=== PATIENT | male | born 1950 | race Caucasian/White ===

== ENCOUNTER 2017-12-24 17:25 | Emergency (ER) | payer MEDICARE, OTHER, SELFPAY | END 2017-12-24 18:54 | disposition home or self-care (01) | PROVIDERS: Emergency Provider Emergency Medicine; Family Provider Internal Medicine; PCP Internal Medicine; Visit Provider Emergency Medicine | DX: I47.1 Supraventricular tachycardia (principal) | CPT/HCPCS: 71010; 71045; 80053; 84484; 85025; 85610; 85730; 93005; 93010; 96361; 96374; 99058; 99284; J0153 ==

== ENCOUNTER → 2018-05-18 15:54 | Outpatient (CLI) | payer MEDICARE, OTHER, SELFPAY ==
--- NOTE | 2018-05-18 | DI.RAD.S_ITS ---
PROCEDURE: XR FOOT RT MIN 3V INDICATIONS: PAIN IN RIGHT FOOT AND ANKLE TECHNIQUE: 3 views of the foot were acquired. COMPARISON: None. FINDINGS: Bones: No fractures or dislocations. No suspicious bony lesions. Moderate first MTP joint osteoarthritis is seen with joint space narrowing and marginal osteophyte formation. Soft tissues: No tibiotalar joint effusion. Achilles tendon appears normal. IMPRESSION: Moderate first MTP joint osteoarthritis. Dictated by: Adolfo Lacey M.D. on 05/18/2018 at 16:35 Approved by: Adolfo Lacey M.D. on 05/18/2018 at 16:35
== END ==
PROVIDERS: Family Provider Internal Medicine; PCP Internal Medicine; Visit Provider Student in an Organized Health Care Education/Training Program
DX: M25.571 Pain in right ankle and joints of right foot (principal); M19.071 Primary osteoarthritis, right ankle and foot
CPT/HCPCS: 73630

== ENCOUNTER → 2018-05-19 13:08 | Outpatient (CLI) | payer MEDICARE, OTHER, SELFPAY ==
--- NOTE | 2018-05-19 | DI.US.S_ITS ---
PROCEDURE: US ABDOMEN LIMITED INDICATIONS: RIGHT LOWER QUADRANT PAIN TECHNIQUE: Real-time focused scanning was performed of the inguinal region, with image documentation. COMPARISON: None. FINDINGS: No right inguinal hernia or other abnormal masses or fluid collections seen. IMPRESSION: No inguinal hernia or other abnormal masses within the right lower quadrant. Dictated by: Desean ADRIAN Interpreted: Gage Gay MD on 05/19/2018 at 16:34 Approved by: Gage Gay M.D. on 05/19/2018 at 17:33
== END ==
PROVIDERS: Family Provider Internal Medicine; PCP Internal Medicine; Visit Provider Student in an Organized Health Care Education/Training Program
DX: R10.31 Right lower quadrant pain (principal)
CPT/HCPCS: 76700; 76705

== ENCOUNTER 2018-06-30 08:03 | Day surgery (SDC) | payer MEDICARE, OTHER, SELFPAY ==
[2018-06-30] MEDS: PROPARACAINE 0.5% OPHTH SOL 2 DROPS EYE-OP (08:47)
[2018-06-30] MEDS: CATARACT EYE COMPOUND (10 DROPS/SYRINGE) 3 DROPS EYE-OP (08:49)
[2018-06-30 08:54] VITALS: BP 156/81; PULSE 51; RESP 18; TEMP 36.4; O2SAT 97; BMI 29.8
--- NOTE | 2018-06-30 09:38 | P.OP.PRE_ITS ---
Pre-operative Note Interval Note Changes: No
--- NOTE | 2018-06-30 09:38 | PM.PREOP ---
Pre-operative Note Interval Note Changes: No
--- NOTE | 2018-06-30 09:39 | P.OP_ITS ---
Operative Date/Time/Diagnoses Pre-op diagnosis: Nuclear cataract right eye Procedure & Clinicians Procedure: Cataract Surgery Same procedure as scheduled: Yes Surgeon: Hermes Burnette Anesthesia Type: MAC +/- and Sedation Operative Notes Procedure in detail: Patient brought to the operating suite. Tetracaine drops placed in the right eye. Patient was prepped and draped in sterile manner. Wire lid speculum was placed in the eye. Betadine drops were placed on the eye. This was irrigated. Lidocaine jelly was placed on the eye. A paracentesis port was created with a side-port blade. 0.1 mL 1% preservative free lidocaine was injected into the anterior chamber. The anterior chamber was deepened with viscoelastic. 2.6 mm keratome was used to create a temporal clear corneal incision. Cystotome and Utrata forceps were used to create continuous tear capsulorrhexis. Balanced salt solution was used to hydro dissect the nucleus. The phacoemulsification handpiece was inserted and the nucleus was removed using the stop and chop technique. The irrigation aspiration handpiece was inserted and the remaining cortex was removed. Anterior chamber was deepened with viscoelastic. An Willard ZCB00 intraocular lens with a power of 18.0 was injected into the capsular bag. Irrigation aspiration handpiece was inserted and the remaining viscoelastic was removed. Incision was hydrated with balanced salt solution and found to be leak free with pressure with Weck- Marianne sponges. 0.1 mL Vigamox injected anterior chamber. 0.3 mL Kenalog 10 mg was injected subconjunctivally. Lid speculum was removed. The patient left the operating room in excellent condition. Complications: none Condition: stable Disposition: same day surgery
[2018-06-30] MEDS: PHENYLEPHRINE/LIDOCAINE VIAL (OR) 0.2 ML EYE-OP (09:54)
[2018-06-30] MEDS: MOXIFLOXACIN OPHTH DROPS 3 ML BOTTLE 2 DROPS INJ (09:54)
[2018-06-30] MEDS: CHONDROIDTIN/SOD HYALURONATE 1.05 ML SYRINGE INTRAOCULA (09:55)
[2018-06-30] MEDS: TRIAMCINOLONE 50 MG/5 ML VIAL INJ (09:55)
[2018-06-30] MEDS: LIDOCAINE JELLY 2% 5 ML 1 APPLIC TOP (09:55)
[2018-06-30] MEDS: BALANCED SALT IRRIG SOLN NO.2 500 ML, EPINEPHrine 1 MG IRR (09:56)
[2018-06-30] MEDS: TETRACAINE 0.5% OPHTH DROPS 15 ML 2 DROPS EYE-RIGHT (09:56)
[2018-06-30 10:10] VITALS: BP 106/66; PULSE 52; RESP 16; TEMP 36.4; O2SAT 94
== END 2018-06-30 10:19 ==
LOC: OR 08:04
PROVIDERS: Family Provider Internal Medicine; PCP Internal Medicine; Visit Provider Ophthalmology
DX: H25.11 Age-related nuclear cataract, right eye (principal); I10 Essential (primary) hypertension
CPT/HCPCS: J0171; J2250; J3010; J3301

== ENCOUNTER → 2018-09-25 11:36 | Outpatient (CLI) | payer MEDICARE, OTHER, SELFPAY ==
[2018-09-25 13:36] LABS: Estimated Glomerular Filt Rate > 60.0 mL/min (>60)
== END ==
PROVIDERS: Family Provider Internal Medicine; PCP Internal Medicine; Visit Provider Internal Medicine
DX: R06.09 Other forms of dyspnea (principal)
CPT/HCPCS: 36415; 82565

== ENCOUNTER → 2019-06-17 14:44 | Outpatient (ROUT) | payer MEDICARE, OTHER, SELFPAY ==
[2019-06-17 20:00] LABS: Aspartate Aminotransferase 32 IU/L (17-59); BUN Creatinine Ratio 23.3 (6-22); Blood Urea Nitrogen 21 mg/dL (9-20); Calcium 9.8 mg/dL (8.4-10.2); Carbon Dioxide 25 mmol/L (22-32); Chloride 107 mmol/L (98-107); Estimated Glomerular Filt Rate > 60.0 mL/min (>60); Glucose 92 mg/dL (80-110); Potassium 4.4 mmol/L (3.4-5.1); Sodium 142 mmol/L (137-145)
[2019-06-17 20:01] LABS: Cholesterol 149 mg/dL (140-199); HDL Cholesterol 54 mg/dL (40-60); HEMOLYSIS < 15 (0-50); LDL Cholesterol Calculated 68 mg/dL (<100); Prostate Specific Antigen 0.592 ng/mL (0.10-4.00); Triglycerides 134 mg/dL (35-150)
== END ==
PROVIDERS: Family Provider Internal Medicine; PCP Internal Medicine; Visit Provider Internal Medicine
DX: E78.5 Hyperlipidemia, unspecified (principal); I10 Essential (primary) hypertension; Z12.5 Encounter for screening for malignant neoplasm of prostate
CPT/HCPCS: 80048; 80061; 84153; 84450

== ENCOUNTER 2019-10-06 12:25 | Day surgery (SDC) | payer MEDICARE, OTHER, SELFPAY ==
--- NOTE | 2019-10-06 | PATH_ITS ---
[facility] Accession Number: [id number] . 01 Material submitted: . PART A: gastrointestinal site - GASTRIC BIOPSY, BODY OF ANTRUM PART B: esophagus - ESOPHAGEAL BIOPSY 30CM PART C: esophagus - ESOPHAGEAL BIOPSY 32CM PART D: esophagus - ESOPHAGEAL BIOPSY 34CM PART E: esophagus - ESOPHAGEAL BIOPSY 36CM PART F: esophagus - ESOPHAGEAL BIOPSY 38CM PART G: rectum - RECTAL POLYP . 01 Clinical history: . A: FOR H.PYLORI B-F: COBIAN'S . 02 Diagnosis: A. Stomach, Biopsy: Gastric body mucosa with minimal chronic inflammation. No evidence of Helicobacter organisms on H/E stain. Negative for intestinal metaplasia. Negative for dysplasia or malignancy. . B. - E. Esophagus, 30-36 CM, Biopsies: Proximal gastric-type mucosa with specialized intestinal metaplasia, consistent with Cobian's esophagus. Negative for dysplasia or malignancy. . F. Esophagus, 38 CM, Biopsy: Proximal gastric mucosa with mild chronic inflammation. Negative for specialized intestinal metaplasia, dysplasia or malignancy. . G. Rectum, Polyp: Colonic mucosa with focal mucosal hyperplasia and benign lymphoid aggregate. Negative for dysplasia or malignancy. [facility] 10/07/2019 1316 Local . 02 Electronically signed: . Aly Monroe MD, PhD, Pathologist NPI- [id number] . 01 Gross description: . Part A: GASTRIC BIOPSY, BODY OF ANTRUM: Received in formalin are 2 fragment(s) of taylor, soft tissue measuring 0.2 x 0.1 x 0.1 cm to 0.3 x 0.2 x 0.2 cm submitted entirely in 1 cassette(s) Part B: ESOPHAGEAL BIOPSY 30CM: Received in formalin are 3 fragment(s) of taylor, soft tissue measuring 0.1 x 0.1 x 0.1 cm to 0.2 x 0.2 x 0.1 cm submitted entirely in 1 cassette(s) Part C: ESOPHAGEAL BIOPSY 32CM: Received in formalin are 2 fragment(s) of taylor, soft tissue measuring 0.1 x 0.1 x 0.1 cm in aggregate submitted entirely in 1 cassette(s) Part D: ESOPHAGEAL BIOPSY 34CM: Received in formalin are 3 fragment(s) of taylor, soft tissue measuring 0.1 x 0.1 x 0.1 cm in aggregate submitted entirely in 1 cassette(s) Part E: ESOPHAGEAL BIOPSY 36CM: Received in formalin are 2 fragment(s) of taylor, soft tissue measuring 0.1 x 0.1 x 0.1 cm in aggregate submitted entirely in 1 cassette(s) Part F: ESOPHAGEAL BIOPSY 38CM: Received in formalin are 2 fragment(s) of taylor, soft tissue measuring 0.1 x 0.1 x 0.1 cm to 0.3 x 0.1 x 0.1 cm submitted entirely in 1 cassette(s) Part G: RECTAL POLYP: Received in formalin is 1 fragment(s) of taylor, soft tissue measuring 0.5 x 0.3 x 0.2 cm submitted entirely in 1 cassette(s) [place] [place]/06/2019 2239 Local . 02 Pathologist provided ICD-10: K22.70, K62.1 . 02 CPT . 966249, 339581, 814310, 940305, 971234, 181188, 599983 Performed at: 01 [facility] [address] [place] [address], [place], [place] [id number] MD Delmar Bennett MD Phone: [phone] Performed at: 02 [facility] [address] [place], [place] [id number] MD Clarissa Evans MD Phone: [phone]
--- NOTE | 2019-10-06 11:35 | PM.HP.1 ---
History of Present Illness History of Present Illness Date Patient Seen: 10/06/19 Chief complaint: [id number] Narrative: 69-year-old male with history of Fuentes's esophagus and reflux who is here for surveillance. The patient is also here for colon cancer screening given a family history of colon cancer in his mother. He denies any prior polyps on his last colonoscopy which was around 5 years ago Patient History Medical History (Updated 06/30/18 @ 08:38 by Joanie Hand RN) GERD (gastroesophageal reflux disease) (Acute) History of supraventricular tachycardia (Acute) Hyperlipidemia (Acute) Hypertension (Acute) Myocardial infarction (Acute) Surgical History (Updated 06/30/18 @ 08:38 by Joanie Hand RN) H/O cardiac radiofrequency ablation (Acute) H/O heart artery stent (Acute) History of abdominal surgery (Acute) History of left cataract surgery (Acute) Family & Social History Social History: household members spouse Meds Home Medications and Allergies Home Medications Medication Instructions Recorded Confirmed Type atorvastatin [Lipitor] 80 mg PO QPM #0 12/15/17 10/06/19 History famotidine 20 mg PO QDAY #0 12/15/17 10/06/19 History metoprolol succinate [Toprol XL] 25 mg PO BID #0 12/15/17 10/06/19 History aspirin 81 mg PO QPM #0 12/24/17 10/06/19 History hyoscyamine sulfate [Levsin/SL] 0.125 mg SUBLINGUAL QIDP PRN #0 12/27/17 10/06/19 History nitroglycerin 0.4 mg SUBLINGUAL Q5-15M PRN 06/30/18 10/06/19 History Allergies Allergy/AdvReac Type Severity Reaction Status Date / Time No Known Drug Allergies Allergy Verified 10/06/19 12:36 Exam Narrative Exam Narrative: General: Patient is overweight, not in apparent distress Cardiovascular: Regular rate and rhythm, no murmurs, rubs, or gallops; no evidence of edema; no palpable abdominal aortic aneurysm Gastrointestinal: Normoactive bowel sounds, soft, nontender, nondistended, no rebound tenderness, no hepatosplenomegaly, no evidence of hernia Assessment & Plan Assessment & Plan narrative: 69-year-old male here for Fuentes's esophagus surveillance and colon cancer screening Regarding the procedure(s), the risks and potential complications, benefits, and alternatives (including not doing the procedure) were discussed with the patient. The risks include but are not limited to bleeding, splenic injury, infection, perforation which may require surgical intervention, missed lesions, and adverse reactions to sedative medicines. After a question and answer period, the patient agreed to proceed with the procedure(s) and gives informed consent.
[2019-10-06 12:53] VITALS: BP 128/77; PULSE 67; RESP 16; TEMP 36.3; O2SAT 93; BMI 28.5
[2019-10-06] MEDS: SODIUM CHLORIDE 0.9% 1,000 ML 70 ML IV (13:03)
--- NOTE | 2019-10-06 13:38 | PM.OP.ENDO ---
Operative Date/Time/Diagnoses Date of procedure: 10/06/19 Procedure Notes Procedure in detail: Surgeon: Todd Kim MD Procedure: Esophagogastroduodenoscopy with biopsy and colonoscopy with cold forceps polypectomy Preoperative diagnosis: GERD, Ufentes's esophagus; colon cancer screening, family history of colon cancer in patient's mother Postoperative diagnosis: LA grade D reflux esophagitis, long segment Fuentes's esophagus from 30 cm to 38 cm from the incisors ([id number]) status post biopsy; paraesophageal hernia with loose fundoplication; duodenitis; sigmoid diverticulosis, rectal polyp, grade 1 internal hemorrhoids Medications: Conscious sedation using 7 mg IV of Midazolam and 100 mcg IV of Fentanyl 40 EGD; 10 mg IV of Midazolam and 200 mcg IV of Fentanyl (total for both procedures) Preanesthesia Assessment An H and P was performed/updated and the Px?s ASA class is 2. The procedure was discussed in detail with the patient. The potential risks and complications including infection, bleeding, missed lesions, perforation, need for surgery in case of perforation, prolonged hospital stay, and were explained. A brief question and answer period was allotted and once all questions were answered, informed consent was obtained. The patient was brought back to the procedure room and placed on standard monitoring. The patient?s vital signs were monitored continuously throughout the entire procedure. Prior to starting, a timeout was performed to confirm the patient?s identity, allergies, medications, and procedure. Procedure in detail The patient was placed in left lateral decubitus position and a bite block was inserted. The tip of the upper endoscope was placed into the mouth and advanced without difficulty under direct visualization into the esophagus. Esophagus: There was note of LA grade D reflux esophagitis at 28 to 30 cm from the incisors. Long segment Fuentes's esophagus with no evidence of nodularity found from 30 cm to 38 cm from the incisors; Fuentes's biopsies taken every 2 cm for a total of 5 bottles with minimal bleeding Stomach: Evidence of prior fundoplication although this is now loose with subsequent development of paraesophageal hernia; gastric biopsies taken for H pylori due to evidence of duodenal erythema Duodenum: Duodenal erythema with shallow ulcerations in the bulb and 2nd portion of the duodenum consistent with duodenitis After the upper endoscopy, preparations were made for the colonoscopy. Once adequate sedation was obtained a ALETHA was performed. The digital rectal examination did not reveal any palpable lesions. The tip of the colonoscope was placed in the anal canal and advanced without difficulty all the way to the cecum which was identified by the appendiceal orifice and the ileocecal valve. There was note of few diverticula in the right colon. There was evidence of multiple medium-sized diverticula in the sigmoid colon In the rectum, a 2 mm sessile polyp was found and removed by means of cold Jumbo forceps. Resection and retrieval was complete with minimal bleeding Retroflexion was performed in the rectum which revealed grade 1 internal hemorrhoids The patient tolerated the procedure well and will be brought back to the recovery area to be discharged once criteria are met. The prep was judged to be good and adequate to identify polyps less than 5 mm. The withdrawal time was 7 minutes. The total physician intraservice time was 41 minutes. Complications There were no complications and estimated blood loss was minimal. Recommendations Resume previous diet Anti-reflux measures at all times Start omeprazole 20 mg 30 minutes prior to breakfast and 30 minutes prior to dinner (script sent to [employer]) Start Carafate 1 g slurry 4 times daily for the next 3 months (script sent to [employer]) Continue outpatient medications Follow-up pathology results Repeat upper endoscopy to check healing of esophagitis in 12 weeks Repeat colonoscopy in 5 years An emergency contact number was given to the patient for any complications related to the procedure
[2019-10-06] MEDS: fentaNYL 250 MCG/5 ML INJ IV (13:39)
[2019-10-06] MEDS: MIDAZOLAM 5 MG/5 ML VIAL IV (13:39)
[2019-10-06 14:26] VITALS: BP 115/78; PULSE 71; RESP 13; TEMP 36.1; O2SAT 94
[2019-10-06 14:31] VITALS: BP 125/80; PULSE 69; RESP 10; O2SAT 92
[2019-10-06 14:35] VITALS: BP 128/87; PULSE 72; RESP 18; TEMP 36.7; O2SAT 93
[2019-10-06 14:50] VITALS: BP 118/78; PULSE 69; RESP 14; TEMP 36.4; O2SAT 92
== END 2019-10-06 14:59 | disposition home or self-care (01) ==
LOC: ENDO 12:27
PROVIDERS: PCP Internal Medicine; Visit Provider Internal Medicine Gastroenterology
PROC: 0DJ08ZZ Inspection of Upper Intestinal Tract, Via Natural or Artificial Opening Endoscopic (ICD-10-PCS; CPT 43235; principal; 2019-10-06 14:00)
PROC: 0DJD8ZZ Inspection of Lower Intestinal Tract, Via Natural or Artificial Opening Endoscopic (ICD-10-PCS; CPT 45378; 2019-10-06 14:00)
DX: Z12.11 Encounter for screening for malignant neoplasm of colon (principal); Z80.0 Family history of malignant neoplasm of digestive organs; K44.9 Diaphragmatic hernia without obstruction or gangrene; K21.0 Gastro-esophageal reflux disease with esophagitis; K29.80 Duodenitis without bleeding; K22.70 Barrett's esophagus without dysplasia; K57.30 Diverticulosis of large intestine without perforation or abscess without bleeding; K64.0 First degree hemorrhoids; K62.1 Rectal polyp
CPT/HCPCS: 45380; 43239; J2250; J3010

== ENCOUNTER → 2020-03-10 06:59 | Outpatient (CLI) | payer MEDICARE, OTHER, SELFPAY ==
[2020-03-10 08:10] LABS: Alanine Aminotransferase 25 IU/L (<50); Albumin 4.2 g/dL (3.5-5.0); Albumin Globulin Ratio 1.2 (1.0-2.8); Alkaline Phosphatase 76 U/L (38-126); Aspartate Aminotransferase 32 IU/L (17-59); BUN Creatinine Ratio 19.1 (6-22); Bilirubin Total 0.5 mg/dL (0.2-1.3); Blood Urea Nitrogen 17 mg/dL (9-20); Calcium 9.3 mg/dL (8.4-10.2); Carbon Dioxide 26 mmol/L (22-32); Chloride 106 mmol/L (98-107); Cholesterol 139 mg/dL (140-199); Estimated Glomerular Filt Rate > 60.0 mL/min (>60); Globulin 3.5 g/dL (1.7-4.1); Glucose 111 mg/dL (80-110); HDL Cholesterol 40 mg/dL (40-60); HEMOLYSIS < 15 (0-50); LDL Cholesterol Calculated 75 mg/dL (<100); Potassium 4.1 mmol/L (3.4-5.1); Sodium 141 mmol/L (137-145); Total Protein 7.7 g/dL (6.3-8.2); Triglycerides 121 mg/dL (35-150)
== END ==
PROVIDERS: PCP Internal Medicine; Referring Provider Internal Medicine; Visit Provider Internal Medicine
DX: E78.5 Hyperlipidemia, unspecified (principal); I25.10 Atherosclerotic heart disease of native coronary artery without angina pectoris
CPT/HCPCS: 36415; 80053; 80061

== ENCOUNTER → 2020-04-16 09:28 | Outpatient (CLI) | payer MEDICARE, OTHER, SELFPAY ==
[2020-04-17 21:57] LABS: COVID19 Sendout Not Detected (Not Detect)
== END ==
PROVIDERS: PCP Internal Medicine; Visit Provider Physician Assistant
DX: Z11.59 Encounter for screening for other viral diseases (principal)
CPT/HCPCS: 87635

== ENCOUNTER 2020-04-19 09:58 | Day surgery (SDC) | payer MEDICARE, OTHER, SELFPAY ==
--- NOTE | 2020-04-19 | PATH_ITS ---
[facility] Accession Number: [id number] . 01 Material submitted: . esophagus - ESO BX . 01 Clinical history: . SDC . 02 Diagnosis: Esophageal Biopsy: Portions of proximal gastric mucosa with chronic gastritis. Negative for H. pylori by immunohistochemistry studies. Negative for intestinal metaplasia by alcian blue stain. Negative for dysplasia or malignancy. [facility] 04/24/2020 1712 Local . 02 Comment: An immunohistochemical stain was performed to evaluate for Helicobacter organisms and is negative. The control stain showed appropriate reactivity. . * This test was developed and its performance characteristics determined by [facility]. It has not been cleared or approved by the U.S. Food and Drug Administration. The FDA has determined that such clearance or approval is not necessary. This test is used for clinical purposes. It should not be regarded as investigational or for research. . 02 Electronically signed: . Alana Rios MD, Pathologist NPI- [id number] . 01 Gross description: . ESO BX: Received in formalin are 3 fragment(s) of taylor, soft tissue measuring 0.3 x 0.2 x 0.1 cm to 0.1 x 0.1 x 0.1 cm submitted entirely in 1 cassette(s) /[facility] 04/20/2020 0249 Local . 02 Pathologist provided ICD-10: K22.70 . 02 CPT . 328765, 774249, 138218 Performed at: 01 [facility] [address] [address], [place], [place] [id number] MD Delmar Bennett MD Phone: [phone] Performed at: 02 [facility] [place] [id number] [place] [id number] MD Clarissa Evans MD Phone: [phone]
[2020-04-19 10:20] VITALS: BP 139/80; PULSE 52; RESP 18; TEMP 36.3; O2SAT 96; BMI 29.1
[2020-04-19] MEDS: SODIUM CHLORIDE 0.9% 1,000 ML 70 ML IV (10:28)
--- NOTE | 2020-04-19 11:05 | PM.HP.1 ---
History of Present Illness History of Present Illness Date Patient Seen: 04/19/20 Time Patient Seen: 11:05 Chief complaint: SDC Narrative: Patient is a 69 year old male who presented for erpeat EGD. Patient had EGD 10/06/2019 with LA-A esophagitis. Biopsies at that time consistent with Fuentes's esophagus. Since that time he took PPI for approximately 3 months is no office he denies abdominal pain. Denies Patient History Medical History GERD (gastroesophageal reflux disease) (Acute) History of supraventricular tachycardia (Acute) Hyperlipidemia (Acute) Hypertension (Acute) Myocardial infarction (Acute) Surgical History H/O cardiac radiofrequency ablation (Acute) H/O heart artery stent (Acute) History of abdominal surgery (Acute) History of left cataract surgery (Acute) Family & Social History Social History: household members spouse Tobacco & Substance use: Smoking Status Never smoker alcohol intake current alcohol intake frequency a few times a month Substance Use Type does not use Meds Home Medications and Allergies Home Medications Medication Instructions Recorded Confirmed Type atorvastatin [Lipitor] 80 mg PO QPM #0 12/15/17 10/06/19 History metoprolol succinate [Toprol XL] 25 mg PO BID #0 12/15/17 10/06/19 History aspirin 81 mg PO QPM #0 12/24/17 10/06/19 History hyoscyamine sulfate [Levsin/SL] 0.125 mg SUBLINGUAL QIDP PRN #0 12/27/17 10/06/19 History nitroglycerin 0.4 mg SUBLINGUAL Q5-15M PRN 06/30/18 10/06/19 History omeprazole 10 mg PO DAILY 04/19/20 04/19/20 History Allergies Allergy/AdvReac Type Severity Reaction Status Date / Time No Known Drug Allergies Allergy Verified 04/19/20 10:16 Review of Systems Review of Systems ROS: Yes All systems reviewed with the patient and are negative except as otherwise documented Exam Vital Signs (past 8 hours): - 04/19/20 10:20 Temperature 97.3 F L Pulse Rate 52 L Respiratory Rate 18 Blood Pressure 139/80 Pulse Oximetry 96 Oxygen Delivery Method Room Air Assessment & Plan Assessment & Plan narrative: 1. LA-D esophagitits 2. Barretts esophagus - EGD today, further recommendations to follow
[2020-04-19] MEDS: LIDOCAINE 4% SOLN 50 ML 20 ML TOP (11:10)
[2020-04-19] MEDS: fentaNYL 250 MCG/5 ML INJ IV (11:11)
[2020-04-19] MEDS: MIDAZOLAM 5 MG/5 ML VIAL IV ×2 (11:11→11:13)
--- NOTE | 2020-04-19 11:20 | PM.OP.ENDO ---
Operative Date/Time/Diagnoses Date of procedure: 04/19/20 Time of procedure: 11:11 Procedure Notes Procedure in detail: Surgeon: Jessica Hearn DO Procedure: Esophagogastroduodenoscopy with biopsy Preoperative diagnosis: 1. History LA-esophagitis 2. History of Fuentes's esophagus Postoperative diagnosis: 1. Improved esophagitis, biopsy for Fuentes's 2. Paraesophageal hernia with loose fundoplication Medications: Conscious sedation using 4 mg IV of Midazolam and 100 mcg IV of Fentanyl Preanesthesia Assessment An H and P was performed/updated and the Px?s ASA class is 2. The procedure was discussed in detail with the patient. The potential risks and complications including infection, bleeding, missed lesions, perforation, need for surgery in case of perforation, prolonged hospital stay, and were explained. A brief question and answer period was allotted and once all questions were answered, informed consent was obtained. The patient was brought back to the procedure room and placed on standard monitoring. The patient?s vital signs were monitored continuously throughout the entire procedure. Prior to starting, a timeout was performed to confirm the patient?s identity, allergies, medications, and procedure. Procedure in detail The patient was placed in left lateral decubitus position and a bite block was inserted. The tip of the upper endoscope was placed into the mouth and advanced without difficulty under direct visualization into the esophagus. Esophagus: Improved esophagitis, minimal salmon-colored mucosa consistent with Fuentes's esophagus, biopsied at 38 cm Stomach: Paraesophageal hernia with loose fundoplication Improved gastritis Duodenum: No gross lesions, entire examined duodenum, improved duodenitis The patient tolerated the procedure well and will be brought back to the recovery area to be discharged once criteria are met. The total physician intraservice time was 8min. Complications There were no complications and estimated blood loss was minimal. Recommendations: Resume previous diet Continue outPx medications Follow up pathology results Repeat EGD in 3 years for Fuentes's surveillance Office follow up if persistnent symptoms An emergency contact number was given to the patient for any complications related to the procedure
[2020-04-19 11:25] VITALS: BP 100/65; BP 100/67; PULSE 49; PULSE 52; RESP 16; TEMP 36.8; O2SAT 93; O2SAT 95
[2020-04-19 11:30] VITALS: BP 100/65; PULSE 91; RESP 16; O2SAT 91
[2020-04-19 11:35] VITALS: BP 103/70; PULSE 50; RESP 16; O2SAT 92
[2020-04-19 11:40] VITALS: BP 104/73; PULSE 50; RESP 16; TEMP 36.9; O2SAT 92
[2020-04-19 12:03] VITALS: BP 119/74; PULSE 48; RESP 14; TEMP 36.6; O2SAT 94
== END 2020-04-19 12:08 | disposition home or self-care (01) ==
PROVIDERS: PCP Internal Medicine; Referring Provider Student in an Organized Health Care Education/Training Program; Visit Provider Student in an Organized Health Care Education/Training Program
PROC: 0DJ08ZZ Inspection of Upper Intestinal Tract, Via Natural or Artificial Opening Endoscopic (ICD-10-PCS; CPT 43235; principal; 2020-04-19 11:00)
DX: K29.50 Unspecified chronic gastritis without bleeding (principal); Z87.19 Personal history of other diseases of the digestive system; K20.9 Esophagitis, unspecified; K44.9 Diaphragmatic hernia without obstruction or gangrene
CPT/HCPCS: 43239; J2250; J3010

== ENCOUNTER → 2020-11-23 15:26 | Outpatient (ROUT) | payer MEDICARE, OTHER, SELFPAY ==
[2020-11-23 16:04] LABS: Aspartate Aminotransferase 30 IU/L (17-59); Blood Urea Nitrogen 21 mg/dL (9-20); Calcium 9.6 mg/dL (8.4-10.2); Carbon Dioxide 24 mmol/L (22-32); Chloride 105 mmol/L (98-107); Cholesterol 138 mg/dL (140-199); Estimated Glomerular Filt Rate > 60.0 mL/min (>60); Glucose 98 mg/dL (80-110); HDL Cholesterol 44 mg/dL (40-60); HEMOLYSIS 15 (0-50); LDL Cholesterol Calculated 65 mg/dL (<100); Potassium 4.7 mmol/L (3.4-5.1); Sodium 139 mmol/L (137-145); Triglycerides 147 mg/dL (35-150)
[2020-11-23 18:50] LABS: Hemoglobin A1C% w Est Avg Glu 5.8 % (4.0-6.0)
== END ==
PROVIDERS: PCP Internal Medicine; Visit Provider Internal Medicine
DX: I10 Essential (primary) hypertension (principal); E78.2 Mixed hyperlipidemia
CPT/HCPCS: 80048; 80061; 83036; 84450

== ENCOUNTER → 2022-01-16 09:30 | Outpatient (CLI) | payer MEDICARE, OTHER, SELFPAY ==
[2022-01-16 10:14] LABS: Hematocrit 43.9 % (41-53); Hemoglobin 14.6 g/dL (13.5-17.5); Mean Corpuscular HGB Conc 33.3 % (30-36); Mean Corpuscular Hemoglobin 30.9 PG (26-34); Mean Corpuscular Volume 92.9 fL (80-100); Platelet Count 186 X10^3/uL (150-400); Red Blood Cell Count 4.73 X10^6/uL (4.5-5.9); Red Cell Distribution Width 14.1 % (11.6-14.8); White Blood Cell Count 8.9 X10^3/uL (4.5-11.0)
[2022-01-16 10:54] LABS: Alanine Aminotransferase 27 IU/L (<50); Albumin 4.3 g/dL (3.5-5.0); Albumin Globulin Ratio 1.3 (1.0-2.8); Alkaline Phosphatase 67 U/L (38-126); Aspartate Aminotransferase 32 IU/L (17-59); BUN Creatinine Ratio 22.3 (6-22); Bilirubin Total 0.6 mg/dL (0.2-1.3); Blood Urea Nitrogen 21 mg/dL (9-20); Calcium 9.4 mg/dL (8.4-10.2); Carbon Dioxide 28 mmol/L (22-32); Chloride 108 mmol/L (98-107); Cholesterol 143 mg/dL (140-199); Estimated Glomerular Filt Rate > 60 mL/min (>60); Globulin 3.2 g/dL (1.7-4.1); Glucose 104 mg/dL (80-110); HDL Cholesterol 49 mg/dL (40-60); HEMOLYSIS < 15 (0-50); LDL Cholesterol Calculated 70 mg/dL (<100); Potassium 4.8 mmol/L (3.4-5.1); Sodium 140 mmol/L (137-145); Total Protein 7.5 g/dL (6.3-8.2); Triglycerides 118 mg/dL (35-150)
[2022-01-16 11:22] LABS: Prostate Specific Antigen 0.603 ng/mL (0.10-4.00)
[2022-01-16 11:25] LABS: TSH w/ Reflex to FT4 3.14 uIU/mL (0.47-4.68)
== END ==
PROVIDERS: PCP Internal Medicine; Referring Provider Internal Medicine; Visit Provider Internal Medicine
DX: E78.2 Mixed hyperlipidemia (principal); I47.1 Supraventricular tachycardia; I25.10 Atherosclerotic heart disease of native coronary artery without angina pectoris; Z12.5 Encounter for screening for malignant neoplasm of prostate
CPT/HCPCS: 36415; 80053; 80061; 84153; 84443; 85027; G0103

== ENCOUNTER 2022-12-09 13:32 | Emergency (ER) | payer MEDICARE, OTHER, SELFPAY ==
[2022-12-09] VITALS (10 sets, daily range): BP systolic 128–143; BP diastolic 74–84; PULSE 53–62; RESP 16; TEMP 36.5; O2SAT 95–98; BMI 27.8
--- NOTE | 2022-12-09 13:52 | DI.RAD.S_ITS ---
PROCEDURE: XR CHEST 1V INDICATIONS: chest pain TECHNIQUE: One view of the chest was acquired. COMPARISON: [facility], CHEST 1 VIEW, 12/24/2017, 17:50. [facility], CHEST 1 VIEW, 01/14/2012, 19:47. FINDINGS: Surgical changes and devices: None. Lungs and pleura: Hazy opacity at the left lung base. No silhouetting. No pleural effusions or pneumothorax. Mediastinum: Mediastinal contours appear unchanged. Heart size is normal. Bones and chest wall: No suspicious bony lesions. Overlying soft tissues appear unremarkable. IMPRESSION: Hazy opacity at the left lung base. Favor atelectasis over pneumonia. Dictated by: Jean Maloney M.D. on 12/09/2022 at 15:00 Approved by: Jean Maloney M.D. on 12/09/2022 at 15:01
[2022-12-09 14:17] LABS: Add Manual Diff / Slide Review NO; Basophils Absolute Auto 0 /uL (0-100); Basophils Percent Auto 0.5 % (0-2); Eosinophils Absolute Auto 200 /uL (0-450); Eosinophils Percent Auto 1.8 % (2-4); Lymphocytes Absolute Auto 1700 /uL (1100-4500); Lymphocytes Percent Auto 16.9 % (25-40); Mean Corpuscular Hemoglobin 31.7 PG (26-34); Monocytes Absolute Auto 1100 /uL (0-900); Monocytes Percent Auto 11.2 % (3-14); Neutrophils Absolute Auto 6900 /uL (1500-7000); Neutrophils Percent Auto 69.6 % (50-75); Platelet Count 177 X10^3/uL (150-400); Red Blood Cell Count 4.73 X10^6/uL (4.5-5.9); Red Cell Distribution Width 13.9 % (11.6-14.8); White Blood Cell Count 9.9 X10^3/uL (4.5-11.0)
[2022-12-09 14:21] LABS: INR 1.1 (0.9-1.3); Prothrombin Time 12.4 SECONDS (10.1-12.7)
[2022-12-09 14:23] LABS: PTT Partial Thromboplastin Tim 33 SECONDS (26-36)
[2022-12-09 14:28] LABS: Alanine Aminotransferase 29 IU/L (<50); Albumin 4.2 g/dL (3.5-5.0); Albumin Globulin Ratio 1.2 (1.0-2.8); Alkaline Phosphatase 65 U/L (38-126); Aspartate Aminotransferase 29 IU/L (17-59); BUN Creatinine Ratio 25.6 (6-22); Bilirubin Total 0.9 mg/dL (0.2-1.3); Blood Urea Nitrogen 21 mg/dL (9-20); Calcium 9.2 mg/dL (8.4-10.2); Carbon Dioxide 25 mmol/L (22-32); Chloride 105 mmol/L (98-107); Creatine Kinase 117 U/L (55-170); Estimated Glomerular Filt Rate > 60 mL/min (>60); Globulin 3.6 g/dL (1.7-4.1); Glucose 108 mg/dL (80-110); HEMOLYSIS < 15 (0-50); Lipase 114 U/L (23-300); Magnesium 2.2 mg/dL (1.6-2.3); Potassium 3.9 mmol/L (3.4-5.1); Sodium 137 mmol/L (137-145); Total Protein 7.8 g/dL (6.3-8.2)
[2022-12-09 14:39] LABS: Troponin I < 0.012 ng/mL (0.01-0.034)
[2022-12-09 14:43] LABS: CKMB % Relative Index 1.6 % (1.5-5.0); Creatine Kinase MB 1.82 ng/mL (<2.37)
[2022-12-09 14:52] LABS: COVID19 -Nasal RAPID Negative (Negative)
--- NOTE | 2022-12-09 18:17 | DI.CT.S_ITS ---
PROCEDURE: CT HEAD/BRAIN WO CON INDICATIONS: dizziness TECHNIQUE: Noncontrast 4.5 mm thick angled axial sections acquired from the foramen magnum to the vertex, with coronal and sagittal reformats. For radiation dose reduction, the following was used: automated exposure control, adjustment of mA and/or kV according to patient size. COMPARISON: [facility], CT, HEAD WITHOUT CONTRAST, 01/14/2012, 19:40. FINDINGS: Image quality: Excellent. CSF spaces: Basal cisterns are patent. No extra-axial fluid collections. Ventricles are normal in size and shape. Brain: No midline shift. No intracranial masses or hemorrhage. Bhatt-white matter interface is normal. Moderate cerebral and cerebellar volume loss with multifocal white matter chronic ischemic change noted. Atherosclerotic calcification noted associated with cavernous segments of both internal carotid arteries. Skull and face: Calvarium and visualized facial bones are intact, without suspicious lesions. Bilateral intraocular lens replacements noted. Sinuses: Visualized sinuses and mastoids are clear. IMPRESSION: Atrophy and chronic ischemic change without intracranial hemorrhage or mass Approved by: Kevin Mariano M.D. on 12/09/2022 at 17:42
--- NOTE | 2022-12-09 19:10 | ED.DIZZY ---
HPI - Dizziness General Chief Complaint: Dizziness Stated Complaint: Dizziness Time Seen by Provider: 12/09/22 18:16 Source: patient and EMS Mode of arrival: EMS History of Present Illness HPI Narrative: 72M nonsmoker with history of coronary artery disease, SVT, hypertension, hyperlipidemia, heart failure presents by EMS for the evaluation of episodes of dizziness, weakness and lightheadedness off and on over the past month or so. Patient states that he has been having these episodes for quite some time and he states that they come out of nowhere in her certainly not linked to any clear pattern. He states that the episodes at times last only a few seconds and other times a few minutes. He denies any exertional symptoms. He denies any relationship to position or movement of his head. He denies chest pain or shortness of breath. He has no palpitations, fever or chills. He denies recent upper respiratory complaints such as runny nose, sneezing, cough or ear pain. Denies change in his medications or diet. He is had no trauma or injury. He denies exercise intolerance. He has no blurred vision or trouble with speech. He denies focal neurologic findings otherwise such as extremity numbness, tingling weakness Related Data Home Medications Medication Instructions Recorded Confirmed aspirin 81 mg tablet,delayed 81 mg PO QPM ##0 12/24/17 07/19/22 release hyoscyamine sulfate 0.125 mg 0.125 mg sublingual QIDP PRN 12/27/17 07/19/22 sublingual tablet (Levsin/SL) Spastic Colon ##0 nitroglycerin 0.4 mg sublingual 0.4 mg sublingual Q5-15M PRN Chest 06/30/18 07/19/22 tablet Pain metronidazole 0.75 % topical cream 1 applic topical BEDTIME 01/16/22 07/19/22 rosuvastatin 40 mg tablet 40 mg PO DAILY 01/16/22 07/19/22 Previous Rx's Medication Instructions Recorded omeprazole 20 mg capsule,delayed 20 mg PO DAILY #90 caps 07/19/22 release Allergies Allergy/AdvReac Type Severity Reaction Status Date / Time No Known Drug Allergies Allergy Verified 12/09/22 18:54 Review of Systems Review of Systems Narrative: GENERAL: Denies chills, fatigue, malaise, fever, sweats. HEENT: Denies sinus pain, ear pain, sore throat, difficulty swallowing, dizziness. RESPIRATORY: Denies dyspnea, cough, wheezing, hemoptysis, sputum. CARDIOVASCULAR: Denies chest pain, palpitations, orthopnea, edema, GASTROINTESTINAL: Denies nausea, vomiting, abdominal pain, diarrhea, constipation, melena. : Denies dysuria, frequency, incontinence, hematuria, urinary retention. MUSCULOSKELETAL: denies weakness, joint pain, or bony pain SKIN: Denies rash, skin lesions, or other NEUROLOGIC: See HPI PSYCHIATRIC: No concerning psychosocial issues. 12 point review of systems is negative except for those stated above Patient History Medical History Advanced directives, counseling/discussion Fuentes's esophagus determined by endoscopy Chicken pox Coronary artery disease Esophageal ring Essential hypertension Foot pain (~2019) GERD (gastroesophageal reflux disease) Hearing loss History of colon polyps History of supraventricular tachycardia Hyperlipidemia Hypertension Medicare annual wellness visit, initial Mixed hyperlipidemia Myocardial infarction Overweight Rosacea (~2017) Skin cancer Systolic heart failure Tinnitus Surgical History H/O cardiac radiofrequency ablation H/O heart artery stent History of abdominal surgery History of left cataract surgery Family History Father Parkinson's disease Mother Cancer Grandfather History of heart attack Social History details: , grown children, otr van cdl truck driver household members: spouse Smoking Status: Never smoker alcohol intake: current Smoking Status: Never smoker alcohol intake frequency: a few times a month Substance Use Type: does not use Exam Narrative Exam Narrative: GENERAL: [72] year old patient appears stated age. Well-developed patient, in mild distress. HEAD: Atraumatic. Normocephalic. EYES: Pupils equal round and reactive. Extraocular motions intact. No scleral icterus. No injection or drainage. ENT: Nose without bleeding, purulent drainage. Throat without erythema, tonsillar hypertrophy or exudate. Airway patent. NECK: Trachea midline. Non tender CARDIOVASCULAR: Regular rate and rhythm without murmurs, gallops, or rubs. RESPIRATORY: Clear to auscultation. Breath sounds equal bilaterally. No wheezes, rales, or rhonchi. GASTROINTESTINAL: Abdomen soft, non-tender, nondistended. EXTREMITIES: No edema or joint tenderness. BACK: Nontender without deformity or crepitance. No flank tenderness. NEURO: AOx3. SKIN: No rash or erythema of visible areas NIH Stroke Scale 1a. LOC: Patient is alert and keenly responsive (0) 1b. LOC Questions: Patient answers both LOC questions accurately (0) 1c. LOC Commands: Patient performs both tasks correctly (0) 2. Best Gaze: Normal (0) 3. Visual: No visual loss (0) 4. Facial palsy: Normal symmetrical movements (0) 5. Motor arm: No drift (0) 6. Motor leg: No drift (0) 7. Limb ataxia: Absent (0) 8. Sensory: Normal (0) 9. Best language: No aphasia; normal (0) 10. Dysarthria: Normal (0) 11. Extinction and inattention: No abnormality (0) NIHSS: 0 Initial Vital Signs Initial Vital Signs: Vital Signs Temperature 97.7 F 12/09/22 13:38 Pulse Rate 62 12/09/22 13:38 Respiratory Rate 16 12/09/22 13:38 Blood Pressure 138/84 12/09/22 13:38 Pulse Oximetry 96 12/09/22 13:38 Oxygen Delivery Method Room Air 12/09/22 13:38 Course Orders Ordered: Discontinued Medications Aspirin (Aspirin 81 Mg Chew Tab) 324 mg PO NOW ONE Stop: 12/09/22 13:53 Last Admin: 12/09/22 19:06 Dose: Not Given Documented By: SB Vital Signs Vital signs: Vital Signs - 8 hr 12/09/22 13:38 12/09/22 16:46 12/09/22 16:47 Temperature 97.7 F Pulse Rate 62 57 L Respiratory Rate 16 Blood Pressure 138/84 143/80 H Pulse Oximetry 96 95 Oxygen Delivery Method Room Air 12/09/22 16:47 12/09/22 17:00 12/09/22 17:00 Temperature Pulse Rate 59 L 56 L Respiratory Rate Blood Pressure 140/84 Pulse Oximetry 96 96 Oxygen Delivery Method 12/09/22 17:30 12/09/22 17:30 12/09/22 18:00 Temperature Pulse Rate 55 L Respiratory Rate Blood Pressure 131/76 128/74 Pulse Oximetry 98 Oxygen Delivery Method 12/09/22 18:00 12/09/22 18:30 12/09/22 19:00 Temperature Pulse Rate 55 L 57 L 53 L Respiratory Rate Blood Pressure Pulse Oximetry 97 96 97 Oxygen Delivery Method MDM - Dizziness Lab Data 12/09/22 13:54 12/09/22 13:54 Labs: Lab Results 12/09/22 12/09/22 12/09/22 Range/Units 13:54 13:54 13:54 WBC 9.9 (4.5-11.0) X10^3/uL RBC 4.73 (4.5-5.9) X10^6/uL Hgb 15.0 (13.5-17.5) g/dL Hct 44.0 (41-53) % MCV 93.0 (80-100) fL MCH 31.7 (26-34) PG MCHC 34.0 (30-36) % RDW 13.9 (11.6-14.8) % Plt Count 177 (150-400) X10^3/uL Neut % (Auto) 69.6 (50-75) % Lymph % (Auto) 16.9 L (25-40) % Andrews % (Auto) 11.2 (3-14) % Eos % (Auto) 1.8 L (2-4) % Baso % (Auto) 0.5 (0-2) % Neut # (Auto) 6900 (4920-2235) /uL Lymph # (Auto) 1700 (2915-8776) /uL Andrews # (Auto) 1100 H (0-900) /uL Eos # (Auto) 200 (0-450) /uL Baso # (Auto) 0 (0-100) /uL PT 12.4 (10.1-12.7) SECONDS INR 1.1 (0.9-1.3) APTT 33 (26-36) SECONDS Sodium 137 (137-145) mmol/L Potassium 3.9 (3.4-5.1) mmol/L Chloride 105 (98-107) mmol/L Carbon Dioxide 25 (22-32) mmol/L BUN 21 H (9-20) mg/dL Creatinine 0.82 (0.66-1.25) mg/dL Estimated GFR > 60 (>60) mL/min BUN/Creatinine Ratio 25.6 H (6-22) Glucose 108 (80-110) mg/dL Calcium 9.2 (8.4-10.2) mg/dL Magnesium 2.2 (1.6-2.3) mg/dL Total Bilirubin 0.9 (0.2-1.3) mg/dL AST 29 (17-59) IU/L ALT 29 (<50) IU/L Alkaline Phosphatase 65 (38-126) U/L Total Creatine Kinase 117 (55-170) U/L CK-MB (CK-2) 1.82 (<2.37) ng/mL CK-MB (CK-2) Rel Index 1.6 (1.5-5.0) % Troponin I < 0.012 (0.01-0.034) ng/mL Total Protein 7.8 (6.3-8.2) g/dL Albumin 4.2 (3.5-5.0) g/dL Globulin 3.6 (1.7-4.1) g/dL Albumin/Globulin Ratio 1.2 (1.0-2.8) Lipase 114 (23-300) U/L SARS-CoV-2 (PCR) (Negative) 12/09/22 Range/Units 13:54 WBC (4.5-11.0) X10^3/uL RBC (4.5-5.9) X10^6/uL Hgb (13.5-17.5) g/dL Hct (41-53) % MCV (80-100) fL MCH (26-34) PG MCHC (30-36) % RDW (11.6-14.8) % Plt Count (150-400) X10^3/uL Neut % (Auto) (50-75) % Lymph % (Auto) (25-40) % Andrews % (Auto) (3-14) % Eos % (Auto) (2-4) % Baso % (Auto) (0-2) % Neut # (Auto) (1488-6459) /uL Lymph # (Auto) (2956-4571) /uL Andrews # (Auto) (0-900) /uL Eos # (Auto) (0-450) /uL Baso # (Auto) (0-100) /uL PT (10.1-12.7) SECONDS INR (0.9-1.3) APTT (26-36) SECONDS Sodium (137-145) mmol/L Potassium (3.4-5.1) mmol/L Chloride (98-107) mmol/L Carbon Dioxide (22-32) mmol/L BUN (9-20) mg/dL Creatinine (0.66-1.25) mg/dL Estimated GFR (>60) mL/min BUN/Creatinine Ratio (6-22) Glucose (80-110) mg/dL Calcium (8.4-10.2) mg/dL Magnesium (1.6-2.3) mg/dL Total Bilirubin (0.2-1.3) mg/dL AST (17-59) IU/L ALT (<50) IU/L Alkaline Phosphatase (38-126) U/L Total Creatine Kinase (55-170) U/L CK-MB (CK-2) (<2.37) ng/mL CK-MB (CK-2) Rel Index (1.5-5.0) % Troponin I (0.01-0.034) ng/mL Total Protein (6.3-8.2) g/dL Albumin (3.5-5.0) g/dL Globulin (1.7-4.1) g/dL Albumin/Globulin Ratio (1.0-2.8) Lipase (23-300) U/L SARS-CoV-2 (PCR) Negative (Negative) MDM Narrative Medical decision making narrative: CC: 72-year-old male with brief episodes of dizziness over the past month or so Complicating co-morbidities: Age, hypertension, coronary artery disease, hyperlipidemia Data collected from: Patient Medical records reviewed: Prior notes reviewed in our EMR Differential considered, but not limited to: Peripheral vertigo, electrolyte abnormality, cardiac ischemia, neurologic etiology versus other Exam documented above, pertinent findings include: No focal neurologic findings, heart rate regular, lungs clear and no evidence of labored breathing, normal neuro exam. Lab Test results independently reviewed as above. Pertinent findings: No leukocytosis or left shift, no evidence of anemia, electrolytes, renal function, troponin within normal Independently reviewed EKG as above Imaging studies independently reviewed: Head CT and chest x-ray without acute findings Scores Used: NIHSS Re-evaluations: Patient essentially asymptomatic for the duration of his visit Discussion: Patient with very nonspecific episodes of dizziness in the absence of other symptoms that have been going off and on for the past month. There is no obvious provocation or palliation. No symptoms for his visit here. History and physical are very reassuring, labs, imaging, EKGs without significant findings. No evidence of stroke, cardiac ischemia, electrolyte abnormality or other significant diagnosis requiring immediate intervention. We had lengthy discussion about the importance of follow-up, questions have been answered to the apparent satisfaction of the patient in his Disposition: see below, along with detailed discharge instructions that have been reviewed with patient as well as indications for ED re-evaluation and additional outpatient follow up Discharge Plan Departure Patient Disposition: Home Clinical Impression: Dizziness Instructions: DI for Dizziness-Nonvertigo Activity Restrictions/Additional Instructions: *You have been diagnosed with [dizziness. As we discussed your history and physical exam as well as labs, EKG, CT scan are all very reassuring.] *What to do: *Please continue to take your regular medications as directed. [ ] New medication prescriptions sent to your pharmacy: [ ] [ ] New medication written as a paper prescription [ ] No new medications given *Please follow up with your primary care provider in 2-3 days, call for an appointment. Let them know you were seen in the Emergency Department and that we ask that you be seen in follow up. We will electronically transmit a record of today's note if your PCP is in our system *Return to Emergency Department if you should have any new, worsening or concerning symptoms, such as [fever greater than 101 F, shaking chills, worsening pain, persistent vomiting or other bothersome symptoms] Prescriptions: No Action aspirin 81 MG tablet,delayed release (DR/EC) 81 mg PO QPM Qty: 0 hyoscyamine sulfate [Levsin/SL] 0.125 MG tablet, sublingual 0.125 mg Sublingual QIDP PRN (Reason: Spastic Colon) Qty: 0 rosuvastatin 40 mg tablet 40 mg PO DAILY metronidazole 0.75 % cream 1 applic topical BEDTIME Patient Comments: APPLY CREAM TOPICALLY TO FACE AT BEDTIME. WASH OFF IN THE MORNING AND APPLY SUNSCREEN MORNING AND NEEDED omeprazole 20 mg capsule,delayed release(DR/EC) 20 mg PO DAILY Qty: 90 3RF nitroglycerin 0.4 mg Tablet, Sublingual 0.4 mg SUBLINGUAL Q5-15M PRN (Reason: Chest Pain) Patient Comments: Has never needed to use it. Rx Instructions: 1 tab SL q 5 min x3 then call 911 Referrals: Ernesto Sanches MD [Primary Care Provider] - Stand Alone Forms: Patient Portal/API
== END 2022-12-09 20:51 | disposition home or self-care (01) ==
PROVIDERS: Emergency Medicine; Emergency Provider Emergency Medicine; PCP Internal Medicine
DX: R42 Dizziness and giddiness (principal); R07.9 Chest pain, unspecified; Z20.822 Contact with and (suspected) exposure to COVID-19
CPT/HCPCS: 70450; 71045; 80053; 82550; 82553; 83690; 83735; 84484; 85025; 85610; 85730; 87635; 93005; 99284; C9803

== ENCOUNTER → 2022-12-19 06:50 | Outpatient (CLI) | payer MEDICARE, OTHER, SELFPAY ==
--- NOTE | 2022-12-19 06:51 | DI.ECHO.S_ITS ---
[place] [facility]---------+ [facility] +---------+ : : [address] : : : : [id number] : : : : Phone: [phone]+ Echocardiogram Report + + :Name: CAITLYN CORDERO Study Date: 12/19/2022 Height: 72 in : :[facility] ReadingLocation: Weight: 210 lb : : Gender: Male BSA: 2.2 m2 : :: 1950 Age: 72 yrs BP: 140/70 mmHg: :Reason For Study: SYNCOPE AND COLLAPSE HR: 68 : :Ordering Physician: LEEROY, : :ARAVIND Performed By: ABDIRASHID MCMAHON : :Referring: ARAVIND UMAÑA : + + Interpretation Summary Normal sinus rhythm. Normal LV size and wall thickness. Normal wall motion and LV systolic function. EF is 55-60%. Normal chamber sizes. Aortic valve leaflets are mildly thickened and calcified; aortic sclerosis without stenosis. Otherwise no significant valvular abnormalities. Borderline dilated aortic root (3.8 cm). Compared to prior complete echo 08/07/2018 aortic root pierce slightly in diameter up from 3.5 to 3.8 cm. Procedure: A two-dimensional transthoracic echocardiogram with color flow and Doppler was performed. The study quality was technically difficult. Comparison is made with the echocardiogram of 09/28/2018. The patient was in normal sinus rhythm during the exam. Left Ventricle: The left ventricle is normal in size and wall thickness. Left ventricular systolic function is normal. The ejection fraction is estimated to be 55-60%. Right Ventricle: The right ventricle is mildly dilated. The right ventricular systolic function is normal. Atria: Both atria are normal in size. There is no Doppler evidence for an interatrial shunt. Mitral Valve: The mitral valve is normal in structure and function. There is trace mitral regurgitation. Aortic Valve: The aortic valve is trileaflet. The aortic valve is mildly calcified. There is no aortic valve stenosis. There is trace aortic regurgitation. Tricuspid Valve: The tricuspid valve is not well visualized. There is mild tricuspid regurgitation. The right ventricular systolic pressure is estimated to be at least 27 mmHg based on an estimated right atrial pressure of 3 mm Hg. Pulmonic Valve: The pulmonic valve is not well visualized. There is no pulmonic valvular regurgitation. Great Vessels: The aortic root is borderline dilated. The ascending aorta is normal in size. The IVC is of normal diameter and collapses greater than 50% with a sniff. This suggests a low right atrial pressure of 3 mm Hg. Pericardium/ Pleura There is no pericardial effusion. There is no pleural effusion. MMode/2D Measurements & Calculations LVIDd: 3.9 cm LVOT diam: 2.0 cm LVIDs: 2.9 cm Ao root diam: 3.8 cm FS: 26.5 % asc Aorta Diam: 3.7 cm IVSd: 0.99 cm LVPWd: 1.0 cm LV heath. diameter/BSA (cm/m^2): 1.8 LV sys. diameter/BSA (cm/m^2): 1.3 LA A2 area: 14.7 cm2 RA long axis: 5.3 cm LA A4 area: 23.5 cm2 RA area: 18.9 cm2 LA length (vol): 5.8 cm RA vol: 56.7 ml LA vol: 50.1 ml RA : 26.1 ml/m2 LA vol index: 23.0 ml/m2 IVC diam: 1.9 cm TAPSE: 1.6 cm Doppler Measurements & Calculations Ao V2 max: 145.5 cm/sec LVOT Max Juan: 130.0 cm/sec Ao V2 mean: 105.7 cm/sec LV V1 max P.8 mmHg Ao max P.5 mmHg LV V1 VTI: 27.3 cm Ao mean P.9 mmHg ESTRADA(I,D): 2.7 cm2 Ao V2 VTI: 30.6 cm ESTRADA(V,D): 2.7 cm2 sev ratio: 0.89 ESTRADA indexed to BSA (cm^2/m^2): 1.2 MV E max juan: 66.1 cm/sec TR max juan: 245.5 cm/sec MV A max juan: 55.0 cm/sec TR max P.1 mmHg MV E/A: 1.2 PA V2 max: 101.2 cm/sec Med Peak E' Juan: 7.6 cm/sec PA V2 mean: 78.1 cm/sec E/E' med: 8.7 PA mean P.6 mmHg Lat Peak E' Juan: 12.9 cm/sec PA pr(Accel): 44.7 mmHg E/E' lat: 5.1 E/e' average: 6.9 MV dec time: 0.25 sec SV(LVOT): 82.4 ml Electronically signed by: Ines Turner M.D. on Reading Physician:12/20/2022 01:19 AM
== END ==
PROVIDERS: PCP Internal Medicine; Referring Provider Student in an Organized Health Care Education/Training Program; Visit Provider Student in an Organized Health Care Education/Training Program
DX: I07.1 Rheumatic tricuspid insufficiency (principal); R55 Syncope and collapse
CPT/HCPCS: 93306

== ENCOUNTER → 2022-12-23 15:05 | Outpatient (CLI) | payer MEDICARE, OTHER, SELFPAY | PROVIDERS: PCP Internal Medicine; Referring Provider Student in an Organized Health Care Education/Training Program; Visit Provider Student in an Organized Health Care Education/Training Program | DX: R55 Syncope and collapse (principal) | CPT/HCPCS: 93242 ==

== ENCOUNTER 2023-02-24 13:21 | Day surgery (SDC) | payer MEDICARE, OTHER, SELFPAY ==
--- NOTE | 2023-02-24 | PATH_ITS ---
[facility] Accession Number: [id number] No. of containers..03 Tissue . 01 Material submitted: . PART A: esophagus - 33 CM ESOPHAGUS PART B: esophagus - 31 CM ESOPHAGUS PART C: esophagus - 29 CM ESOPHAGUS . 01 Diagnosis: A-B. Esophagus, 33, 31 cm, Biopsies: Proximal gastric-type mucosa with specialized intestinal metaplasia, consistent with Fuentes's esophagus. Negative for dysplasia and malignancy. . C. Esophagus, 29 cm, Biopsy: Squamocolumnar junctional mucosa with specialized intestinal metaplasia, consistent with Fuentes's esophagus. Negative for dysplasia and malignancy. [facility] 02/28/2023 1401 Local . 01 Electronically signed: . Aly Monroe MD, PhD, Pathologist NPI- [id number] . 01 Gross description: . A. Received in formalin, labeled with the patient's name, , and 33 cm esophagus, and consists of four taylor soft tissue fragments measuring 0.2 cm each in greatest dimension. Filtered and submitted in cassette A1. B. Received in formalin, labeled with the patient's name, , and 31 cm esophagus, and consists of three taylor soft tissue fragments ranging from 0.1 cm to 0.2 cm in greatest dimension. Submitted entirely in cassette B1. C. Received in formalin, labeled with the patient's name, , and 29 cm esophagus, and consists of three taylor soft tissue fragments ranging from 0.2 cm to 0.3 cm in greatest dimension. Submitted entirely in cassette C1. ([id number]) /Cely 02/27/2023 0223 Local . 01 Pathologist provided ICD-10: K22.70 . 01 CPT . 893812, 599042, 433181 Specimen Comment: A courtesy copy of this report has been sent to [phone] Performed at: 01 [facility] [address], [place], [place] [id number] MD Delmar Bennett MD Phone: [phone]
[2023-02-24 14:07] VITALS: BMI 27.3
[2023-02-24 14:12] VITALS: BP 128/86; PULSE 61; RESP 20; TEMP 36.2; O2SAT 94
[2023-02-24] MEDS: LACTATED RINGERS 1,000 ML 42 ML IV (14:21)
--- NOTE | 2023-02-24 14:50 | P.HP_ITS ---
History of Present Illness History of Present Illness Date Patient Seen: 02/24/23 Time Patient Seen: 14:50 Chief complaint: EGD Narrative: Patient reports today for Barretts surveillance. Reflux is under control with omeprazole. [facility] Medical History Fuentes's esophagus determined by endoscopy BPPV (benign paroxysmal positional vertigo) Chicken pox Coronary artery disease Esophageal ring Essential hypertension GERD (gastroesophageal reflux disease) Hearing loss History of colon polyps History of supraventricular tachycardia Mixed hyperlipidemia Overweight Primary osteoarthritis involving multiple joints Rosacea (~2017) Skin cancer Tinnitus Surgical History H/O cardiac radiofrequency ablation H/O heart artery stent History of abdominal surgery History of left cataract surgery Family History Father Parkinson's disease Mother Cancer Grandfather History of heart attack Social History details: , grown children, 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 Smoking Status: Never smoker alcohol intake: current Meds Home Medications and Allergies Home Medications Medication Instructions Recorded Confirmed Type aspirin 81 mg tablet,delayed 81 mg PO QPM ##0 12/24/17 02/24/23 History release hyoscyamine sulfate 0.125 mg 0.125 mg sublingual QIDP PRN 12/27/17 02/24/23 History sublingual tablet (Levsin/SL) Spastic Colon ##0 nitroglycerin 0.4 mg sublingual 0.4 mg sublingual Q5-15M PRN Chest 06/30/18 02/24/23 History tablet Pain metronidazole 0.75 % topical cream 1 applic topical BEDTIME 01/16/22 02/24/23 History rosuvastatin 40 mg tablet 40 mg PO DAILY 01/16/22 02/24/23 History omeprazole 20 mg capsule,delayed 20 mg PO DAILY #180 caps 02/20/23 02/24/23 Rx release Allergies Allergy/AdvReac Type Severity Reaction Status Date / Time No Known Drug Allergies Allergy Verified 02/24/23 14:05 Review of Systems Review of Systems ROS: Yes All systems reviewed with the patient and are negative except as otherwise documented Exam Vital Signs (past 8 hours): - 02/24/23 14:12 Temperature 97.2 F L Pulse Rate 61 Respiratory Rate 20 Blood Pressure 128/86 Pulse Oximetry 94 Oxygen Delivery Method Room Air Oxygen Delivery Method Room Air Const General: cooperative HENMT Head: normal to inspection Eyes General: appearance normal, both eyes and all related structures Neck Neck: normal visual inspection Chest Chest: normal inspection of the chest Resp Effort & Inspection: normal respiratory effort Cardio Rate: regular rate GI Inspection: normal to inspection Skin General: no rashes or lesions noted Neuro General: patient alert and patient awake Extrem General: normal to inspection and no pedal edema Psych Appearance: grossly normal Assessment & Plan Assessment & Plan narrative: 72-year-old male with Barretts esophagus and reflux. He is had a prior David fundoplication. EGD for surveillance is pursued today.
--- NOTE | 2023-02-24 14:52 | PM.PREOP ---
Pre-operative Note Interval Note History & Physical reviewed/Exam performed by Physician: Yes Changes to H&P: No ASA Class (for procedural sedation): II
--- NOTE | 2023-02-24 16:01 | P.OP.EGD_ITS ---
Operative Date/Time/Diagnoses Date of procedure: 02/24/23 Time of procedure: 16:01 Pre-op diagnosis: History of GERD and Barretts Post-op diagnosis: same Procedure & Clinicians Study performed: EGD with biopsies Same procedure as scheduled: Yes Indications: History of GERD and Barretts Surgeon: Jun Patton Procedure Notes SCOAP/Timeout: Done Procedure in detail: After the risks and benefits were explained, written and verbal informed consent was obtained. The patient was brought into the procedure room and placed into the left lateral decubitus position. Please see anesthesia notes for sedation details. The scope was introduced into the mouth through the bite block and advanced under direct visualization to the 2nd portion of the duodenum. The scope was slowly withdrawn carefully examining the mucosa for any defects or lesions. Retroflexed views were accomplished in the stomach. The stomach was decompressed, the scope was then removed from the patient who tolerated the procedure well. Sedation minutes: 15 Complications: none Impression: 1. Duodenum: This was visually normal from the bulb through to the 2nd portion. 2. Stomach: No gastric outlet obstruction no ulcers no mass lesions. Retroflexed views of the LES disclosed evidence of a persistent hiatal hernia and significant relaxation or slippage of the previous David fundoplication. 3. Esophagus: The GE junction was at approximately 35 cm from the incisors. I did not measure where the diaphragmatic pinchcock was but there was a cons iderable hiatal hernia sac evident as a result of the slipped David. The salmon-colored mucosa consistent with Fuentes's extended from the GE junction up to about 29 cm from the incisors. I did not appreciate any acute ulceration nodularity or stricturing in this segment. This was consistent with C5 M 6 Barretts. Four quadrant biopsies were taken from 33 cm from the incisors and 31 cm from the incisors. At the 29 cm from the incisors I was able to get 3 biopsy specimens. Endoscopic diagnosis 1. C5 M 6 Barretts 2. Slipped David 3. Hiatal hernia Post-procedure Plan for aftercare: 1. Await histopathology 2. Repeat EGD 3 years. 3. Continue anti-reflux therapy. Disposition: PACU
[2023-02-24 16:02] VITALS: BP 103/64; PULSE 63; RESP 18; TEMP 36.9; O2SAT 95
[2023-02-24 16:07] VITALS: BP 104/67; PULSE 58; RESP 19; TEMP 36.9; O2SAT 93
[2023-02-24 16:13] VITALS: BP 112/70; PULSE 59; RESP 20; O2SAT 94
[2023-02-24 16:25] VITALS: BP 113/68; PULSE 59; RESP 15; TEMP 36.7; O2SAT 97
== END 2023-02-24 16:32 | disposition home or self-care (01) ==
PROVIDERS: PCP Internal Medicine; Referring Provider Internal Medicine Gastroenterology; Visit Provider Internal Medicine Gastroenterology
PROC: 0DJ08ZZ Inspection of Upper Intestinal Tract, Via Natural or Artificial Opening Endoscopic (ICD-10-PCS; CPT 43235; principal; 2023-02-24 15:00)
DX: K22.70 Barrett's esophagus without dysplasia (principal); Z87.19 Personal history of other diseases of the digestive system; K44.9 Diaphragmatic hernia without obstruction or gangrene
CPT/HCPCS: 43239; J2704

== ENCOUNTER → 2023-05-30 08:59 | Outpatient (CLI) | payer MEDICARE, OTHER, SELFPAY ==
[2023-05-30 10:50] LABS: BUN Creatinine Ratio 20.5 (6-22); Blood Urea Nitrogen 18 mg/dL (9-20); Calcium 9.4 mg/dL (8.4-10.2); Carbon Dioxide 27 mmol/L (22-32); Chloride 104 mmol/L (98-107); Estimated Glomerular Filt Rate > 60 mL/min (>60); Glucose 102 mg/dL (80-110); HEMOLYSIS < 15 (0-50); Potassium 4.6 mmol/L (3.4-5.1); Sodium 139 mmol/L (137-145)
== END ==
PROVIDERS: PCP Internal Medicine; Referring Provider Internal Medicine; Visit Provider Internal Medicine
DX: I25.10 Atherosclerotic heart disease of native coronary artery without angina pectoris (principal)
CPT/HCPCS: 36415; 80048

== ENCOUNTER → 2023-06-09 07:02 | Outpatient (CLI) | payer MEDICARE, OTHER, SELFPAY ==
[2023-06-09 08:48] LABS: Blood Urea Nitrogen 21 mg/dL (9-20); Carbon Dioxide 28 mmol/L (22-32); Chloride 103 mmol/L (98-107); Estimated Glomerular Filt Rate > 60 mL/min (>60); Glucose 105 mg/dL (80-110); HEMOLYSIS < 15 (0-50); Potassium 4.3 mmol/L (3.4-5.1); Sodium 138 mmol/L (137-145)
== END ==
PROVIDERS: PCP Internal Medicine; Referring Provider Internal Medicine; Visit Provider Internal Medicine
DX: I25.10 Atherosclerotic heart disease of native coronary artery without angina pectoris (principal)
CPT/HCPCS: 36415; 80048

== ENCOUNTER → 2023-07-04 06:46 | Outpatient (CLI) | payer MEDICARE, OTHER, SELFPAY ==
[2023-07-04 08:47] LABS: BUN Creatinine Ratio 18.2 (6-22); Blood Urea Nitrogen 18 mg/dL (9-20); Calcium 9.5 mg/dL (8.4-10.2); Carbon Dioxide 28 mmol/L (22-32); Chloride 101 mmol/L (98-107); Cholesterol 137 mg/dL (140-199); Estimated Glomerular Filt Rate > 60 mL/min (>60); Glucose 98 mg/dL (80-110); HDL Cholesterol 47 mg/dL (40-60); HEMOLYSIS < 15 (0-50); LDL Cholesterol Calculated 63 mg/dL (<100); Potassium 4.2 mmol/L (3.4-5.1); Sodium 138 mmol/L (137-145); Triglycerides 137 mg/dL (35-150)
== END ==
PROVIDERS: PCP Internal Medicine; Referring Provider Internal Medicine; Visit Provider Internal Medicine
DX: I25.10 Atherosclerotic heart disease of native coronary artery without angina pectoris (principal)
CPT/HCPCS: 36415; 80048; 80061

== ENCOUNTER → 2024-01-22 10:38 | Outpatient (CLI) | payer MEDICARE, OTHER, SELFPAY ==
[2024-01-23 13:41] LABS: Aspartate Aminotransferase 31 IU/L (17-59); BUN Creatinine Ratio 16.3 (6-22); Blood Urea Nitrogen 15 mg/dL (9-20); Calcium 8.9 mg/dL (8.4-10.2); Carbon Dioxide 24 mmol/L (22-32); Chloride 109 mmol/L (98-107); Cholesterol 129 mg/dL (140-199); Estimated Glomerular Filt Rate > 60 mL/min (>60); Glucose 99 mg/dL (80-110); HDL Cholesterol 43 mg/dL (40-60); HEMOLYSIS 18 (0-50); LDL Cholesterol Calculated 32 mg/dL (<100); Potassium 4.6 mmol/L (3.4-5.1); Sodium 139 mmol/L (137-145); Triglycerides 271 mg/dL (35-150)
[2024-01-23 14:12] LABS: Prostate Specific Antigen 0.754 ng/mL (0.10-4.00)
== END ==
PROVIDERS: PCP Internal Medicine; Referring Provider Internal Medicine; Visit Provider Internal Medicine
DX: E78.2 Mixed hyperlipidemia (principal); N40.1 Benign prostatic hyperplasia with lower urinary tract symptoms; I10 Essential (primary) hypertension; N13.8 Other obstructive and reflux uropathy
CPT/HCPCS: 36415; 80048; 80061; 84153; 84450

== ENCOUNTER → 2024-05-20 14:15 | Outpatient (CLI) | payer MEDICARE, OTHER, SELFPAY ==
[2024-05-20 15:51] LABS: BUN Creatinine Ratio 20.4 (6-22); Blood Urea Nitrogen 19 mg/dL (9-20); Calcium 9.5 mg/dL (8.4-10.2); Carbon Dioxide 23 mmol/L (22-32); Chloride 104 mmol/L (98-107); Estimated Glomerular Filt Rate > 60 mL/min (>60); Glucose 87 mg/dL (80-110); HEMOLYSIS < 15 (0-50); Potassium 4.5 mmol/L (3.4-5.1); Sodium 134 mmol/L (137-145)
== END ==
PROVIDERS: PCP Internal Medicine; Referring Provider Internal Medicine; Visit Provider Internal Medicine
DX: I25.10 Atherosclerotic heart disease of native coronary artery without angina pectoris (principal)
CPT/HCPCS: 36415; 80048

== ENCOUNTER → 2024-07-26 08:41 | Outpatient (CLI) | payer MEDICARE, OTHER, SELFPAY ==
[2024-07-26 10:01] LABS: Cholesterol 145 mg/dL (140-199); HDL Cholesterol 46 mg/dL (40-60); LDL Cholesterol Calculated 67 mg/dL (<100); Triglycerides 162 mg/dL (35-150)
== END ==
PROVIDERS: PCP Internal Medicine; Referring Provider Internal Medicine; Visit Provider Internal Medicine
DX: I25.10 Atherosclerotic heart disease of native coronary artery without angina pectoris (principal)
CPT/HCPCS: 36415; 80061

== ENCOUNTER 2025-01-24 07:48 | Day surgery (SDC) | payer MEDICARE, OTHER, SELFPAY ==
--- NOTE | 2025-01-24 | PATH_ITS ---
[facility] Accession Number: [id number] No. of containers..02 Tissue . 01 Material submitted: . PART A: esophagus, E-G Junction - GE JUNCTION PART B: colon - COLON, ASCENDING POLYP . 01 Clinical history: . A) R/O BARRETTS . 01 Diagnosis: A. GE JUNCTION: Gastric oxyntic mucosa with focal minimal active inflammation. No goblet cell metaplasia or Helicobacter pylori organisms identified on H/E slide. No dysplasia or malignancy. . B. ASCENDING COLON POLYP: Colonic mucosa with benign lymphoid aggregate. MRV 01/27/2025 1449 Local . 01 Electronically signed: . Lorena Daly MD, Pathologist NPI- [id number] . 01 Gross description: . A. Received in formalin with two patient identifiers and GE junction, rule out Fuentes's and consists of two taylor tissues averaging 0.3 cm in greatest dimension, which are submitted in toto in cassette A1. B. Received in formalin with two patient identifiers and Ascending colon polyp, and consists of two taylor tissues measuring 0.1 and 0.2 cm in greatest dimension, which are submitted in toto in cassette B1. ([id number]) /MRV 01/25/2025 2209 Local . 01 Pathologist provided ICD-10: K21.9, K63.89 . 01 CPT . 848482, 810888 Specimen Comment: A courtesy copy of this report has been sent to [phone] Performed at: [address] [address], [place], [place] [id number] MD Delmar Bennett MD Phone: [phone]
[2025-01-24] MEDS: LACTATED RINGERS 1,000 ML 42 ML IV (08:09)
[2025-01-24 08:20] VITALS: BP 122/84; PULSE 87; RESP 22; TEMP 36.1; O2SAT 95
--- NOTE | 2025-01-24 09:28 | PM.HP.IH.1 ---
History of Present Illness History of Present Illness Date Patient Seen: 01/24/25 Chief complaint: EGD [facility] Medical History Primary osteoarthritis involving multiple joints BPPV (benign paroxysmal positional vertigo) Rosacea (~2017) Chicken pox Tinnitus Hearing loss Esophageal ring Skin cancer Overweight History of colon polyps Fuentes's esophagus determined by endoscopy Mixed hyperlipidemia Essential hypertension Coronary artery disease GERD (gastroesophageal reflux disease) History of supraventricular tachycardia Surgical History History of abdominal surgery H/O cardiac radiofrequency ablation H/O heart artery stent History of left cataract surgery Family History Father Parkinson's disease Mother Cancer Grandfather History of heart attack Social History details: , grown children, straight truck driver household members: spouse Smoking Status: Never smoker alcohol intake: current Meds Home Medications and Allergies Home Medications Medication Instructions Recorded Confirmed Type aspirin 81 mg tablet,delayed 81 mg PO QPM ##0 12/24/17 01/24/25 History release hyoscyamine sulfate 0.125 mg 0.125 mg sublingual QIDP PRN 12/27/17 01/22/24 History sublingual tablet (Levsin/SL) Spastic Colon ##0 nitroglycerin 0.4 mg sublingual 0.4 mg sublingual Q5-15M PRN Chest 06/30/18 01/24/25 History tablet Pain rosuvastatin 40 mg tablet 40 mg PO DAILY 01/16/22 01/24/25 History omeprazole 20 mg capsule,delayed 20 mg PO BID #180 caps 04/08/24 01/24/25 Rx release Allergies Allergy/AdvReac Type Severity Reaction Status Date / Time metoprolol AdvReac bradycardia Verified 01/24/25 08:14 ticagrelor [From Brilinta] AdvReac SOB Verified 01/24/25 08:15 Exam Vital Signs (past 8 hours): - 01/24/25 08:20 Temperature 97 F L Pulse Rate 87 Respiratory Rate 22 Blood Pressure 122/84 Pulse Oximetry 95 Oxygen Delivery Method Room Air Oxygen Delivery Method Room Air Narrative Exam Narrative: Oropharynx free of lesions Chest clear to auscultation percussion Cardiac exam reveals no S3 or murmur Assessment & Plan Assessment & Plan narrative: History of Barretts esophagus need for follow-up upper endoscopy with biopsy. Also history of colon polyps need for follow-up colonoscopy. Risks, benefits, alternatives have been explained. Time-Based Coding :: [TOTAL MINUTES] spent with patient and on the chart (including review of chart, obtaining history, exam, reviewing outside data, placing orders, documenting exam and treatment plan, and counseling patient) on [DATE]. PROFEE Supervisor Order Takers Document charge(s): No
--- NOTE | 2025-01-24 09:30 | PM.OP.EC ---
Operative Date/Time/Diagnoses Date of procedure: 01/24/25 Time of procedure: 10:17 Pre-op diagnosis: See indication and findings Post-op diagnosis: same Procedure & Clinicians Study performed: EGD and colonoscopy Same procedure as scheduled: Yes Indications: History of Barretts esophagus and history of colon polyps Surgeon: Dalton San Procedure Notes Procedure in detail: After informed consent was obtained the patient was placed in left lateral decubitus position. Video upper scope was placed into the oropharynx and with the patient's help swallowed into the esophagus. The esophagus stomach and duodenal were carefully examined. On withdrawal, retroflexed view the GE junction was performed. The scope was removed. The patient tolerated procedure well. The patient was then turned and the colonoscope substituted. This was placed in the rectum slowly advanced the cecum. Preparation was good. On slow withdrawal mucosa was carefully examined. The scope was removed. The patient tolerated procedure well. Blood loss none Complications none Sedation mac Findings EGD 1. GE junction with evidence of failed David fundoplication with a proximally for 2 cm. Biopsies taken just above this to rule out Barretts though there were no clear landmarks to indicate that he did have Barretts. 2. Normal stomach distally 3. Normal duodenal bulb and sweep Colonoscopy 1. Extensive pancolonic diverticulosis particularly in the sigmoid. Lumen was impinged upon and mid the colonoscopy more difficult. 2. Two diminutive polyps in the proximal right colon cold biopsied and removed completely 3. Otherwise negative colonoscopy to cecum One might consider 1 more colonoscopy in 5 years if he is in excellent health. On the other hand, with poor landmarks unless something is found on these biopsies I would not suggest follow-up Barretts esophagus screening.
[2025-01-24 10:20] VITALS: BP 105/66; PULSE 92; RESP 12; TEMP 36.6; O2SAT 92
[2025-01-24 10:25] VITALS: BP 96/53; PULSE 96; RESP 15; O2SAT 92
[2025-01-24 10:34] VITALS: BP 106/73; PULSE 88; RESP 22; O2SAT 93
== END 2025-01-24 10:45 | disposition home or self-care (01) ==
PROVIDERS: PCP Internal Medicine; Referring Provider Internal Medicine Gastroenterology; Visit Provider Internal Medicine Gastroenterology
PROC: 0DJ08ZZ Inspection of Upper Intestinal Tract, Via Natural or Artificial Opening Endoscopic (ICD-10-PCS; CPT 45380; principal; 2025-01-24 09:00)
PROC: 0DJD8ZZ Inspection of Lower Intestinal Tract, Via Natural or Artificial Opening Endoscopic (ICD-10-PCS; CPT 45378; 2025-01-24 09:00)
DX: Z12.11 Encounter for screening for malignant neoplasm of colon (principal); Z86.0100 Personal history of colon polyps, unspecified; Z87.19 Personal history of other diseases of the digestive system; K57.30 Diverticulosis of large intestine without perforation or abscess without bleeding; K29.50 Unspecified chronic gastritis without bleeding; K63.5 Polyp of colon
CPT/HCPCS: 45380; 43239; J2405; J2704

== ENCOUNTER → 2025-04-11 11:06 | Outpatient (CLI) | payer MEDICARE, OTHER, SELFPAY ==
[2025-04-11 12:27] LABS: Alanine Aminotransferase 21 IU/L (<50); Albumin 4.1 g/dL (3.5-5.0); Albumin Globulin Ratio 1.4 (1.0-2.8); Alkaline Phosphatase 63 U/L (38-126); Blood Urea Nitrogen 20 mg/dL (9-20); Estimated Glomerular Filt Rate > 60 mL/min (>60); Globulin 3.0 g/dL (1.7-4.1); HEMOLYSIS < 15 (0-50); Total Protein 7.1 g/dL (6.3-8.2)
== END ==
PROVIDERS: PCP Internal Medicine; Referring Provider Physician Assistant Medical; Visit Provider Physician Assistant Medical
DX: B35.1 Tinea unguium (principal)
CPT/HCPCS: 36415; 80076; 82565; 84520

== ENCOUNTER → 2025-06-15 14:45 | Outpatient (CLI) | payer MEDICARE, OTHER, SELFPAY ==
[2025-06-15 15:39] LABS: Alanine Aminotransferase 21 IU/L (<50); Albumin 4.0 g/dL (3.5-5.0); Albumin Globulin Ratio 1.2 (1.0-2.8); Alkaline Phosphatase 67 U/L (38-126); Blood Urea Nitrogen 18 mg/dL (9-20); Estimated Glomerular Filt Rate > 60 mL/min (>60); Globulin 3.3 g/dL (1.7-4.1); HEMOLYSIS < 15 (0-50); Total Protein 7.3 g/dL (6.3-8.2)
== END ==
PROVIDERS: PCP Internal Medicine; Referring Provider Physician Assistant Medical; Visit Provider Physician Assistant Medical
DX: B35.1 Tinea unguium (principal)
CPT/HCPCS: 36415; 80076; 82565; 84520

== ENCOUNTER → 2025-06-16 15:22 | Outpatient (CLI) | payer MEDICARE, OTHER, SELFPAY ==
[2025-06-16 15:53] LABS: Hematocrit 42.5 % (41-53); Hemoglobin 14.4 g/dL (13.5-17.5); Mean Corpuscular HGB Conc 33.9 % (30-36); Mean Corpuscular Hemoglobin 31.2 PG (26-34); Mean Corpuscular Volume 91.9 fL (80-100); Platelet Count 199 X10^3/uL (150-400)
[2025-06-16 16:28] LABS: Cholesterol 127 mg/dL (140-199); HDL Cholesterol 49 mg/dL (40-60); Triglycerides 179 mg/dL (35-150)
[2025-06-16 16:58] LABS: Prostate Specific Antigen 0.769 ng/mL (0.10-4.00)
== END ==
PROVIDERS: PCP Internal Medicine; Referring Provider Internal Medicine; Visit Provider Internal Medicine
DX: I25.10 Atherosclerotic heart disease of native coronary artery without angina pectoris (principal); N40.1 Benign prostatic hyperplasia with lower urinary tract symptoms; E66.3 Overweight; N13.8 Other obstructive and reflux uropathy
CPT/HCPCS: 36415; 80061; 84153; 85027

== ENCOUNTER → 2025-07-04 07:17 | Outpatient (CLI) | payer MEDICARE, OTHER, SELFPAY ==
[2025-07-04 08:48] LABS: Cholesterol 136 mg/dL (140-199); HDL Cholesterol 51 mg/dL (40-60); Triglycerides 129 mg/dL (35-150)
== END ==
PROVIDERS: PCP Internal Medicine; Referring Provider Internal Medicine; Visit Provider Internal Medicine
DX: I25.10 Atherosclerotic heart disease of native coronary artery without angina pectoris (principal)
CPT/HCPCS: 36415; 80061

== ENCOUNTER → 2025-07-25 16:19 | Outpatient (CLI) | payer MEDICARE, OTHER, SELFPAY ==
[2025-07-25 18:14] LABS: Alanine Aminotransferase 23 IU/L (<50); Albumin 4.2 g/dL (3.5-5.0); Albumin Globulin Ratio 1.2 (1.0-2.8); Alkaline Phosphatase 69 U/L (38-126); Blood Urea Nitrogen 18 mg/dL (9-20); Calcium 9.5 mg/dL (8.4-10.2); Carbon Dioxide 25 mmol/L (22-32); Chloride 107 mmol/L (98-107); Estimated Glomerular Filt Rate > 60 mL/min (>60); Globulin 3.4 g/dL (1.7-4.1); Glucose 100 mg/dL (70-99); HEMOLYSIS < 15 (0-50); Potassium 4.9 mmol/L (3.4-5.1); Sodium 139 mmol/L (137-145); Total Protein 7.6 g/dL (6.3-8.2)
== END ==
PROVIDERS: PCP Internal Medicine; Referring Provider Internal Medicine; Visit Provider Internal Medicine
DX: I25.10 Atherosclerotic heart disease of native coronary artery without angina pectoris (principal)
CPT/HCPCS: 36415; 80053

== ENCOUNTER → 2025-08-24 10:38 | Outpatient (CLI) | payer MEDICARE, OTHER, SELFPAY ==
[2025-08-24 13:19] LABS: Alanine Aminotransferase 18 IU/L (<50); Albumin 4.4 g/dL (3.5-5.0); Albumin Globulin Ratio 1.3 (1.0-2.8); Alkaline Phosphatase 69 U/L (38-126); Globulin 3.3 g/dL (1.7-4.1); HEMOLYSIS 20 (0-50); Total Protein 7.7 g/dL (6.3-8.2)
== END ==
PROVIDERS: PCP Internal Medicine; Referring Provider Physician Assistant Medical; Visit Provider Physician Assistant Medical
DX: B35.1 Tinea unguium (principal)
CPT/HCPCS: 36415; 80076